=== PATIENT | male | born 1995 | race Caucasian/White ===

== ENCOUNTER 2023-07-09 20:50 | Emergency (ER) | payer OTHER ==
[2023-07-09 21:00] VITALS: BP 115/68; PULSE 86; RESP 18; TEMP 99.1; BMI 23.9
== END 2023-07-09 22:14 | disposition home or self-care (01) ==
LOC: JERFT 20:50
DX: R51.9 Headache, unspecified (principal); R09.81 Nasal congestion; R05.9 Cough, unspecified; R52 Pain, unspecified; R50.9 Fever, unspecified; J10.1 Influenza due to other identified influenza virus with other respiratory manifestations; Z20.822 Contact with and (suspected) exposure to COVID-19
CPT/HCPCS: 0241U-QW; 99283-25